=== PATIENT | female | born 1975 | race Caucasian/White ===

== ENCOUNTER 2019-07-24 19:42 | Emergency (ER) | payer OTHER ==
[~2019-07-24] VITALS: Ht 162.6 cm; Wt 89.4 kg
[~2019-07-24 19:42] MED LIST: AMOXICILLIN 50500 M1; AURALGAN OTIC S14 ML OT; CIPRODEX OTIC7.5 ML; CLARITIN10 MG; CORTISPORIN OTI10 ML; FLOXIN OTI0.3 %/5 M1 OT; HYDROCODON-ACE1 EACH; WELLBUTRIN SR150 MG
[2019-07-24] MEDS ORDERED: ZANAFLEX4 M1 PO (20:02)
[2019-07-24] MEDS ORDERED: BACLOFEN 10MG T10 MG PO (21:56)
[2019-07-24] MEDS ORDERED: HYDROCODON-ACE1 EAC8 PO (21:56)
[2019-07-24 22:56] VITALS: BP 155/79
== END 2019-07-24 22:56 | disposition home or self-care (01) ==
LOC: M.ERS 19:42
DX: M54.16 Radiculopathy, lumbar region (principal)